=== PATIENT | female | born 1945 | race Caucasian/White ===

== ENCOUNTER 2017-02-14 15:17 | Emergency (ER) | payer MEDICARE, BC ==
[~2017-02-14] VITALS: Ht 157.5 cm; Wt 53.7 kg
[~2017-02-14 15:17] MED LIST: ASPI81 PO; CALC500T21 OR; FISH1000 PO; LEVA500T33 PO; METR-1 PO; RED600TA OR; [UNRECOGNIZED DRUG - OTHER] PO
[2017-02-14 15:22] VITALS: BP 174/75; PULSE 64; RESP 15; TEMP 97.9; O2SAT 96
[2017-02-14] MEDS ORDERED: LISI-515 PO (15:33)
[2017-02-14] MEDS ORDERED: TYLETAB34 PO (16:08)
--- NOTE | 2017-02-14 16:15 | PD ---
HPI Chief Complaint: Pain: Acute or Chronic Time Seen by Provider: 15:30 Travel History International Travel<30 days: No Contact w/Intl Traveler<30days: No Traveled to known affect area: No History of Present Illness HPI 71 year-old female presents to the emergency room for evaluation of right arm pain for the past several months. She went to her primary care physician 2 months ago and had an outpatient x-ray which showed no acute abnormality. Physical therapy was ordered and she was supposed started 2 days ago but the physical therapist would not proceed because her blood pressure was too elevated. Patient states he was in the 200s. She was sent immediately to her primary care physician where she was given a one-time dose of antihypertensive medication in the office and discharged with prescription for lisinopril. She started taking the first dose yesterday and a second dose today. Patient does not like to take NSAIDs because she says it makes her feel achy. She took Tylenol today without significant relief in symptoms. She presents requesting stronger imaging than x-ray to evaluate her chronic right upper arm pain. She denies any trauma or injury. No paresthesias. Pain is worse with certain range of motion. It is now radiating into her neck. PFSH Past Medical History Cancer: No High Cholesterol: Yes Diminished Hearing: No Endocrine: No Gastrointestinal Disorders: Yes (HEMORRHOIDS) Genitourinary: No Hypertension: Yes Immune Disorder: No Musculoskeletal: No Neurologic: No Psychiatric: No Reproductive: No Respiratory: No Menopausal: Yes Past Surgical History Other Surgery: Yes (HEMORRHOIDECTOMY) Social History Alcohol Use: Yes (COUPLE DRINKS PER YEAR) Tobacco Use: No Substance Use: No Allergies-Medications (Allergen,Severity, Reaction): Coded Allergies: No Known Allergies (Verified , 02/14/17) Reported Meds & Prescriptions Reported Meds & Active Scripts Active Tylenol-Codeine #3 (Acetaminophen-Codeine) 300-30 mg Tab 1 Tab PO Q6HR PRN Reported Lisinopril 20 Mg Tab 20 Mg PO DAILY Review of Systems Except as stated in HPI: all other systems reviewed are Neg Physical Exam Narrative GENERAL: Well-nourished, well-developed female in no acute distress. Afebrile. Ambulatory. SKIN: Focused skin assessment warm/dry. No erythema or ecchymosis noted. No increased warmth. HEAD: Normocephalic. EYES: No scleral icterus. No injection or drainage. NECK: Supple, trachea midline. No JVD or lymphadenopathy. CARDIOVASCULAR: Regular rate and rhythm without murmurs, gallops, or rubs. RESPIRATORY: Breath sounds equal bilaterally. No accessory muscle use. MUSCULOSKELETAL: No cyanosis, or edema. 2+ radial pulse. Radial, ulnar, and median nerves intact. Motor range of motion of the right upper extremity secondary to pain. Tenderness to palpation of the proximal humerus. Data Data Last Documented VS Vital Signs Date Time Temp Pulse Resp B/P (MAP) Pulse Ox O2 Delivery O2 Flow Rate FiO2 02/14/17 15:22 97.9 64 15 174/75 (108) 96 MDM Medical Decision Making Medical Screen Exam Complete: Yes Emergency Medical Condition: Yes Medical Record Reviewed: Yes Differential Diagnosis Tendinitis, brachial plexus syndrome, muscle spasm, muscle strain, contusion, fracture, bone lesion Narrative Course 71-year-old female presents to the emergency room for evaluation of right upper arm pain for the past several months. She denies trauma or injury. She went to her primary care physician 2 months ago and had an outpatient x-ray which was negative for acute bony abnormality. Patient was supposed to start physical therapy 2 days ago but the PT would not proceed because her blood pressure was too elevated. She was started on blood pressure medication yesterday. She presents requesting stronger imaging study for a more specific diagnosis. Patient was informed that she may need an MRI and the emergency room does not routinely perform this study. Right upper extremity is neurovascularly intact with 2+ pulse. Radial, ulnar, and median nerves intact. Limited range of motion secondary to pain. Mild tenderness to palpation of the proximal humerus. This is likely tendinitis. She was told to follow-up with her primary care physician for outpatient MRI or return for worsening symptoms. She understands and agrees to plan. Diagnosis Primary Impression: Calcific tendinitis, right upper arm Referrals: Primary Care Physician Additional Instructions: Rest and drink plenty of fluids. Take Tylenol 3 as directed, as needed for pain. Do not drink alcohol or drive while taking this medication. Apply ice to the affected area for 20 minutes at a time, as needed for pain and swelling. Follow-up with a primary care physician. Return to the emergency room for worsening symptoms. Med/Other Pt SpecificInfo: Prescription(s) given Scripts Acetaminophen-Codeine (Tylenol-Codeine #3) 300-30 mg Tab 1 TAB PO Q6HR Y for PAIN, #15 TAB 0 Refills Prov: Roxy Donovan DO 02/14/17 Disposition: 01 DISCHARGE HOME Condition: Stable Terri Jaffe Feb 14, 2017 16:15
== END 2017-02-14 16:21 | disposition home or self-care (01) ==
LOC: PHEFT 15:17
DX: M65.221 Calcific tendinitis, right upper arm (principal); E78.00 Pure hypercholesterolemia, unspecified; I10 Essential (primary) hypertension
CPT/HCPCS: 99283